=== PATIENT | male | born 1960 | race Two or more races ===

== ENCOUNTER → 2019-06-20 | Emergency (ER) | payer SELFPAY ==
[~2019-06-20] VITALS: Ht 175.3 cm; Wt 83.9 kg
[~2019-06-20] MED LIST: HYDROcodone-ACET 5/325MG TAB PO ONE; MORPHINE SULFATE 4 MG/ML SYR/VIAL IV ONE; ONDANSETRON HCL 4 MG/2 ML VIAL IV ONE
[2019-06-20 23:00] VITALS: BP 118/73
== END | disposition home or self-care (01) ==
LOC: EDBD 20:23 → ER 20:27
DX: S16.1XXA Strain of muscle, fascia and tendon at neck level, initial encounter (principal); S00.03XA Contusion of scalp, initial encounter; S20.212A Contusion of left front wall of thorax, initial encounter; Q43.3 Congenital malformations of intestinal fixation; V43.52XA Car driver injured in collision with other type car in traffic accident, initial encounter; Y93.89 Activity, other specified; Y92.488 Other paved roadways as the place of occurrence of the external cause; Y99.8 Other external cause status
CPT/HCPCS: 70450; 71250; 72125; 74176; 96374; 96375; 99285; J2270; J2405